=== PATIENT | male | born 1960 | race Caucasian/White ===

== ENCOUNTER 2017-09-05 13:12 | Emergency (ER) | payer BC ==
[2017-09-05] MEDS ORDERED: HYDROcodone/Acetaminophen 10/325 mg Tablet ONE (14:17)
--- NOTE | 2017-09-05 14:38 | ULT ---
RIGHT LOWER EXTREMITY VENOUS DOPLER: HISTORY: Edema. Bruising. Pain. COMPARISON: None. FINDINGS: The right upper extremity venous system was interrogated with a linear ray transducer. The internal jugular, subcuticular, axillary veins, as well as the brachial, basilic, and cephalic veins were in terrogated as well as radial veins. There is moderate upper extremity edema. No deep venous thrombosis. IMPRESSION: No deep venous thrombosis. POS: [facility]
== END 2017-09-05 15:45 | disposition home or self-care (01) ==
LOC: ERS 13:12
DX: S42.291A Other displaced fracture of upper end of right humerus, initial encounter for closed fracture (principal); M51.36 Other intervertebral disc degeneration, lumbar region; I10 Essential (primary) hypertension; I25.2 Old myocardial infarction; F43.10 Post-traumatic stress disorder, unspecified; F31.9 Bipolar disorder, unspecified; F41.9 Anxiety disorder, unspecified; F17.210 Nicotine dependence, cigarettes, uncomplicated; Z86.73 Personal history of transient ischemic attack (TIA), and cerebral infarction without residual deficits; Y35.93XA Legal intervention, means unspecified, suspect injured, initial encounter
CPT/HCPCS: 36415; 82550

== ENCOUNTER 2017-09-07 11:00 | Emergency (ER) | payer BC ==
--- NOTE | 2017-09-07 12:03 | RAD ---
RIGHT HUMERUS TWO VIEWS: HISTORY: Right arm swelling. Right shoulder pain. Known fracture. FINDINGS: There is a minimally displaced fracture involving the neck of the right humerus. POS: [facility]
== END 2017-09-07 13:30 | disposition home or self-care (01) ==
LOC: ERS 11:00
DX: M25.511 Pain in right shoulder (principal); E78.00 Pure hypercholesterolemia, unspecified; I10 Essential (primary) hypertension; I25.2 Old myocardial infarction; F43.10 Post-traumatic stress disorder, unspecified; F41.9 Anxiety disorder, unspecified; F31.9 Bipolar disorder, unspecified; F17.210 Nicotine dependence, cigarettes, uncomplicated; Z86.73 Personal history of transient ischemic attack (TIA), and cerebral infarction without residual deficits

== ENCOUNTER 2021-02-14 08:06 | Outpatient (CLI) | payer BC ==
[2021-02-14 09:48] LABS: #Eosinphils 0.1 10x3/uL (0.0-0.5); #Monocytes 0.8 10x3/uL (0.0-1.1); #Neutrophils 6.1 10x3/uL (1.5-8.4); %Basophils 0.3 % (0.0-2.0); %Eosinophils 1.3 % (0.0-6.0); %Lymphocytes 26.7 % (18.0-47.0); %Monocytes 8.6 % (0.0-10.0); Hemoglobin 15.9 g/dL (13.5-17.5); Mean Corpuscular HGB CONC 33.1 g/dL (32.0-36.0); Mean Corpuscular Hemoglobin 29.1 pg (27.0-33.0); Mean Corpuscular Volume 88.1 fl (81.2-95.1); Mean Platelet Volume 9.8 fl (7.4-10.4); Platelet Count 281 10x3/uL (150-450); RBC Distribution Width 13.6 % (11.5-14.5); Red Blood Cell (RBC) Count 5.46 10x6/uL (4.32-5.72); White Blood Cell (WBC) Count 9.8 10x3/uL (3.5-10.5)
[2021-02-14 10:02] LABS: Anion Gap 14 mmol/L (10-20); BUN (Urea Nitrogen) 12 mg/dL (8.4-25.7); Calc. Creatinine Clearance 0 mL/min (70-130); Calcium 9.4 mg/dL (7.8-10.44); Carbon Dioxide 25 mmol/L (22-29); Chloride 104 mmol/L (98-107); Glucose 134 mg/dL (70-105); Potassium 4.9 mmol/L (3.5-5.1); Sodium 138 mmol/L (136-145)
[2021-02-14 17:59] LABS: SARS-CoV-2 PCR by NAA Not Detected (NotDetected)
== END 2021-02-14 08:07 | disposition home or self-care (01) ==
LOC: LABBT 08:06
PROVIDERS: ATTEND Specialist
DX: Z01.818 Encounter for other preprocedural examination (principal); K42.9 Umbilical hernia without obstruction or gangrene; R91.8 Other nonspecific abnormal finding of lung field; Z20.822 Contact with and (suspected) exposure to COVID-19
CPT/HCPCS: 71046; 80048; 85025; 87635; 93005; 93010; U0003; U0005

== ENCOUNTER 2021-05-27 11:48 | Outpatient (CLI) | payer BC ==
[2021-05-27 12:31] LABS: #Eosinphils 0.1 10x3/uL (0.0-0.5); #Monocytes 0.9 10x3/uL (0.0-1.1); #Neutrophils 5.1 10x3/uL (1.5-8.4); %Basophils 0.5 % (0.0-2.0); %Eosinophils 1.4 % (0.0-6.0); %Lymphocytes 29.3 % (18.0-47.0); %Monocytes 9.8 % (0.0-10.0); %Neutrophils 58.4 % (40.0-75.0); Hemoglobin 15.3 g/dL (13.5-17.5); Mean Corpuscular HGB CONC 33.5 g/dL (32.0-36.0); Mean Corpuscular Hemoglobin 29.4 pg (27.0-33.0); Mean Corpuscular Volume 87.9 fl (81.2-95.1); Mean Platelet Volume 9.6 fl (7.4-10.4); Platelet Count 269 10x3/uL (150-450); RBC Distribution Width 13.2 % (11.5-14.5); White Blood Cell (WBC) Count 8.7 10x3/uL (3.5-10.5)
[2021-05-27 12:37] LABS: Anion Gap 13 mmol/L (10-20); BUN (Urea Nitrogen) 9 mg/dL (8.4-25.7); Calc. Creatinine Clearance 0 mL/min (70-130); Carbon Dioxide 27 mmol/L (22-29); Chloride 103 mmol/L (98-107); Glucose 99 mg/dL (70-105); Potassium 4.6 mmol/L (3.5-5.1); Sodium 138 mmol/L (136-145)
[2021-05-27 15:44] LABS: SARS-CoV-2 NAA Rapid Test Not Detected (NotDetected)
== END 2021-05-27 11:49 | disposition home or self-care (01) ==
LOC: LABBT 11:48
PROVIDERS: ATTEND Specialist
DX: Z01.818 Encounter for other preprocedural examination (principal); K42.9 Umbilical hernia without obstruction or gangrene; Z20.822 Contact with and (suspected) exposure to COVID-19
CPT/HCPCS: 80048; 85025; U0002

== ENCOUNTER 2021-05-28 06:17 | Day surgery (SDC) | payer BC ==
[2021-05-27 09:44] VITALS: BMI 29.0
[2021-05-28] MEDS ORDERED: Acetaminophen 500 MG TAB ONE (06:43)
[2021-05-28] MEDS ORDERED: Ketorolac Tromethamine 30 MG/ML VIAL ONE (06:44)
[2021-05-28] MEDS ORDERED: Lidocaine 1% w/Epinephrine 1:100K 20 ML VIAL ONE (06:55)
[2021-05-28] MEDS ORDERED: Bupivacaine 0.25% HCL 30 ML VIAL ONE (06:55)
[2021-05-28] MEDS ORDERED: Fentanyl 100 MCG/2 ML VIAL ONE (07:00)
[2021-05-28] MEDS ORDERED: Ondansetron PF 4 MG/2 ML Vial ONE (07:37)
[2021-05-28] MEDS ORDERED: Glycopyrrolate 0.2 MG/ML 5 ML SYRINGE ONE (07:37)
[2021-05-28] MEDS ORDERED: PROPOFOL 200 MG/20 ML VIAL ONE (07:37)
[2021-05-28] MEDS ORDERED: Dexamethasone 20 MG/5 ML VIAL ONE (07:37)
[2021-05-28] MEDS ORDERED: Rocuronium Bromide 10 MG/ML (10ML VIAL) ONE (07:37)
[2021-05-28] MEDS ORDERED: Lidocaine 1% PF 5 ML VIAL ONE (07:37)
[2021-05-28] MEDS ORDERED: PHENYLEPHRINE-NS 100 MCG/ML 10 ML SYRINGE ONE (07:37)
[2021-05-28] MEDS ORDERED: HYDROcodone/Acetaminophen 5/325 mg Tablet ONE (10:35)
== END 2021-05-28 11:52 | disposition home or self-care (01) ==
LOC: SDC 06:17
PROVIDERS: ATTEND Specialist
PROC: 0WUF0JZ Supplement Abdominal Wall with Synthetic Substitute, Open Approach (ICD-10-PCS; principal; 2021-05-28)
DX: K42.9 Umbilical hernia without obstruction or gangrene (principal); I10 Essential (primary) hypertension; F17.200 Nicotine dependence, unspecified, uncomplicated; Z79.02 Long term (current) use of antithrombotics/antiplatelets; Z79.82 Long term (current) use of aspirin; Z79.899 Other long term (current) drug therapy; Z95.5 Presence of coronary angioplasty implant and graft
CPT/HCPCS: J0690; J1100; J1885; J2405; J2704; J3010; S0020